=== PATIENT | female | born 1960 | race Caucasian/White ===

== ENCOUNTER 2022-03-28 05:01 | Emergency (ER) | payer BC ==
[~2022-03-28] VITALS: Ht 177.8 cm; Wt 81.7 kg
[2022-03-28] MEDS ORDERED: SPIRIVA18 MCG INH (05:17)
== END 2022-03-28 05:41 | disposition home or self-care (01) ==
LOC: ED 05:01
DX: R04.0 Epistaxis (principal); J43.9 Emphysema, unspecified
CPT/HCPCS: 30901; 99283-25

== ENCOUNTER 2024-04-12 20:14 | Inpatient (IN) | payer OTHER ==
[~2024-04-12] VITALS: Ht 177.8 cm; Wt 84.2 kg
[~2024-04-12 20:14] MED LIST: SPIRIVA18 MCG INH
[2024-04-12 20:27] LABS: PH, VENOUS 6.987 (7.31-7.41)
[2024-04-12 20:30] LABS: HEMATOCRIT 50.4 % (35.0-50.0); HEMOGLOBIN 16.7 g/dL (12.0-18.0); MCH 30.5 (27-36); MCHC 33.2 g/dl (30-36); MCV 92.1 fl (81-99); PLATELET COUNT 320 K/uL (140-440); RBC 5.47 M/ul (4.3-5.7); RDW 14.9 (10.5-15.0)
[2024-04-12] MEDS ORDERED: ALBUTEROL SULFATE 0.5% 2.5 MG/0.5 ML VIAL INH ONE (20:30)
[2024-04-12] MEDS ORDERED: ALBUTEROL/IPRATROPIUM 3 ML NEB INH ONE (20:30)
[2024-04-12] MEDS ORDERED: LORazepam 2 MG/ML VIAL IV ONE (20:30)
[2024-04-12 20:48] LABS: BASOPHILS, MANUAL DIFF 1; EOSINOPHILS, MANUAL DIFF 18; LYMPHOCYTES, MANUAL DIFF 41; MONOCYTES, MANUAL DIFF 8; NEUTROPHILS, MANUAL DIFF 32
[2024-04-12 20:57] LABS: ALBUMIN 4.1 g/dL (3.4-5.0); ALBUMIN/GLOBULIN RATIO 1.17 (1.1-2.4); ANION GAP 18.6 (7-21); BILIRUBIN, TOTAL 0.3 ng/dL (0.2-1.0); BUN/CREATININE RATIO 9.48 (6.0-28.6); CALCIUM 9.4 mg/dL (8.5-10.1); CREATININE, SERUM 1.16 mg/dL (0.55-1.02); POTASSIUM 5.6 mmol/L (3.5-5.1); PROTEIN, TOTAL 7.6 g/dL (6.4-8.2)
[2024-04-12] MEDS ORDERED: SODIUM CHLORIDE 0.9% 1,000 ML IV PRN (21:00)
[2024-04-12] MEDS ORDERED: LACTATED RINGER'S 1,000 ML IV ONE (21:00)
[2024-04-12] MEDS ORDERED: CEFTRIAXONE/SODIUM CHLORIDE 2 GM/100 ML PIGGYBACK IV ONE (21:15)
[2024-04-12] MEDS ORDERED: AZITHROMYCIN/DEXTROSE 500 MG/250 ML BAG IV ONE (21:15)
[2024-04-12 21:30] LABS: INFLUENZA B NAA NEGATIVE (NEGATIVE); RESPIRATORY SYNCYTIAL VIR NAA NEGATIVE (NEGATIVE)
[2024-04-12] MEDS ORDERED: methylPREDNISolone SOD SUCC 40 MG/ML VIAL IV SCH (22:00)
--- NOTE | 2024-04-12 22:15 | NUR ---
PT ARRIVED TO THE UNIT VIA STRETCHER. HANDOFF REPORT RECEIVED FROM STEFANO KHAN. PT ARRIVES TO THE UNIT ON BIPAP. PT IS ALERT AND ORIENTED. ANSWERS QUESTIONS APPROPRIATLY AND FOLLOWS COMMANDS. PT DAUGHTER AT BEDSIDE. PT IV SITES WNL. PT VITAL SIGNS WNL. PT DOES NOT APPEAR TO BE IN ANY DISTRESS.
[2024-04-12] MEDS ORDERED: ALBUTEROL SULFATE 0.083% 3 ML VIAL INH PRN (22:30)
[2024-04-12 22:37] VITALS: BP 111/71
[2024-04-12] MEDS ORDERED: MELATONIN 3 MG TAB PO PRN (22:45)
[2024-04-12] MEDS ORDERED: ACETAMINOPHEN 325 MG TAB PO PRN (22:45)
--- NOTE | 2024-04-12 23:00 | NUR ---
PT REMAINS ON BIPAP. SETTING ARE 18/8, RATE 26, O2 36%. PT TOLERATING WELL. PT STATES SHE FEELS SOB AT TIMES, AND HAS A NONPRODUCTIVE COUGH. PT LUNGS SOUNDS ARE DIMINISHED WITH WHEEZING NOTED THROUGHOUT. PT CHANGED INTO BRIEF, AND PROVIDED WITH WARM BLANKET AND WATER. NO NEEDS AT THIS TIME. CALL LIGHT WITHIN REACH. BED IN LOW AND LOCKED POSTION.
--- NOTE | 2024-04-12 23:30 | NUR ---
DISCUSSED MEDICATIONS WITH DR. MEADE. ORDER FOR PRN ATIVAN RECEIVED -SEE EMAR.
[2024-04-12] MEDS ORDERED: LORazepam 2 MG/ML VIAL IV PRN (23:45)
[2024-04-13] VITALS (23 sets, daily range): BP systolic 92–135; BP diastolic 58–92
[2024-04-13] MEDS ORDERED: ALBUTEROL/IPRATROPIUM 3 ML NEB INH SCH
--- NOTE | 2024-04-13 | NUR ---
PT REQUESTING TO REMOVE BIPAP MASK FOR A BREAK AND TO DRINK WATER. BIPAP MASK REMOVED, 4L OXYMASK APPLIED. PT TOLERATING WELL WITH SATURATIONS ABOVE 93%. NO FURTHER NEEDS AT THIS TIME. CALL LIGHT WITHIN REACH.
--- NOTE | 2024-04-13 00:20 | NUR ---
PT PLACED BACK ON BIPAP. SETTINGS REMAIN UNCHANGED. NO FURTHER NEEDS AT THIS TIME. CALL LIGHT WITHIN REACH. BED IN LOW AND LOCKED POSTION.
--- NOTE | 2024-04-13 01:45 | NUR ---
PT RESTING IN BED WITH EYES CLOSED, RESPIRATIONS EVEN AND UNLABORED. PT REMAINS ON BIPAP, SETTINGS REMAIN UNCHANGED. PT VSS. APPEARS TO BE COMFORTABLE. NO NEEDS AT THIS TIME. CALL LIGHT WITHIN REACH, BED IN LOW AND LOCKED POSTION.
--- NOTE | 2024-04-13 02:34 | NUR ---
PT USED CALL LIGHT. PT HAVING COUGH ATTACK AND REQUEST TO TAKE OFF BIPAP. BIPAP TAKEN OFF AND 4L OXYMASK PLACED. RT CALLED FOR A PRN NEB TREATMENT. NEB TREATMENT PROVIDED AND PT PLACED BACK ON BIPAP. PT APPEARS TO BE ANXIOUS, PRN ATIVAN GIVEN PER EMAR.
--- NOTE | 2024-04-13 04:24 | NUR ---
PT RESTING IN BED WITH EYES CLOSED, RESPIRATIONS EVEN AND UNLABORED. VITAL SIGNS STABLE, NO DISTRESS NOTED. PT REMAINS ON BIPAP. SETTINGS ARE 18/8, RATE OF 24, AND O2 36%. CALL LIGHT WITHIN REACH.
--- NOTE | 2024-04-13 06:06 | NUR ---
LABS DRAWN OFF PERIPHERAL IV SITE AND SENT TO LAB. PT REQUEST A CUP OF COFFEE. PT HAS NO OTHER NEEDS AT THIS TIME. VITAL SIGNS REMAIN STABLE. PT REMAINS ON BIPAP, SETTINGS UNCHANGED. CALL LIGHT WITHIN REACH.
[2024-04-13 06:14] LABS: BASOPHILS 0.6 % (0-2); EOSINOPHILS 0.1 % (0-6); HEMATOCRIT 42.3 % (35.0-50.0); LYMPHOCYTES 9.4 % (24-44); MCH 29.7 (27-36); MCV 89.9 fl (81-99); MONOCYTES 0.8 % (0-12); NEUTROPHILS 89.1 % (39-80); PLATELET COUNT 260 K/uL (140-440); RDW 14.3 (10.5-15.0)
[2024-04-13 06:30] LABS: ANION GAP 14.5 (7-21); CALCIUM 8.1 mg/dL (8.5-10.1); CREATININE, SERUM 0.75 mg/dL (0.55-1.02); MAGNESIUM 1.8 mg/dL (1.8-2.4); POTASSIUM 4.5 mmol/L (3.5-5.1)
--- NOTE | 2024-04-13 07:30 | NUR ---
REPORT RECEIVED FROM SAIDA AGARWAL. RT IN ROOM.
[2024-04-13] MEDS ORDERED: NICOTINE 21 MG/24 HR 1 EA TDSY TD SCH (09:00)
[2024-04-13] MEDS ORDERED: ENOXAPARIN SODIUM 40 MG/0.4 ML SYR SUB-Q SCH (09:00)
--- NOTE | 2024-04-13 09:08 | NUR ---
RT IN TO DO PRN NEB TX.
--- NOTE | 2024-04-13 09:44 | NUR ---
CONNECTED WITH MOTHER IN [place]. ESCORTED HER TO ROOM. PT DECLINED VISIT. MOTHER ACCEPTING OF THAT DECISION. ESCORTED MOTHER BACK TO MAIN HALLWAY. PROVIDED SUPPORTIVE PRESENCE, PRAYER. PT DOES NOT WISH TO SEE ANY VISITORS AT THIS TIME.
--- NOTE | 2024-04-13 10:42 | NUR ---
UR CLINICAL REVIEW: [facility] IN[facility] CRITERIA SELF PAY INPT 04/12/24 @ 2142 ORDER MATCHES REG NO AUTH REQIRIED PATIENT IS SELF PAY AT THIS TIME DISCHARGE DISPOSITION PENDING FURTHER EVALUATION 04/15/24
--- NOTE | 2024-04-13 10:44 | NUR ---
IN TO CHECK ON PT, SHE IS STILL ON OXYMASK 4L WATCHING TV. HAS BEEN USING IS AND FLUTTER VALVE, SPO2 98%, RR 14. DENIES NEEDS AT THIS TIME.
--- NOTE | 2024-04-13 11:10 | NUR ---
up to commode to void 700 ML OF CLEAR YELLOW URINE. STABLE ON FEET, DENIES SHORTNESS OF BREATH OR DIZZINESS. OXYMASK OFF, O2 AT 2 LITERS APPLIED. ASKING FOR SOMETHING TO EAT. ENSURE, PUDDING, APPLESAUSE, JUICE GIVEN. SPONGE BATH GIVEN. PATIENT TOLERATED ACTIVITY WELL.
[2024-04-13] MEDS ORDERED: PHARMACY RENAL DOSE ADJUSTMENT 1 DOSE MISC PO SCH (12:00)
--- NOTE | 2024-04-13 12:25 | EKG ---
[facility] [address] [place], [place] [address] Signed Sinus tachycardia Otherwise normal ECG No previous ECGs available Confirmed by Irving Madrigal MD ([id number]) on 04/13/2024 12:25:16 PM Electronically Signed By: IRVING MADRIGAL MD 04/13/24 1225 PATIENT NAME: KEILA GOETZJOROOSEVELT ANDUJAR SARI Electrocardiogram DATE OF : 62 PHYSICIAN: IRVING MADRIGAL MD REPORT #: [id number] REPORT IS CONFIDENTIAL AND NOT TO BE RELEASED WITHOUT AUTHORIZATION
--- NOTE | 2024-04-13 13:47 | NUR ---
PT UP TO BATHROOM TO VOID, REMAINS ON 2L/NC WHILE UP. SATS 95%, SLIGHTLY MORE SOB WITH WALKING. BACK TO BED. HAS EATEN HALF OF LUNCH, WILFREDO WELL. CALL LIGHT IN REACH. DAUGHTER IN TO VISIT WITH PT.
--- NOTE | 2024-04-13 14:54 | NUR ---
SPOKE TO PATIENT ABOUT THE DISCHARGE PLAN. PATIENT PLANS TO DC HOME WHEN MEDICALLY STABLE. PATIENT IS RETIRED. PATIENT HAS NO INSURANCE. ADMITTING WILL HELP THE PATIENT FILL OUT [employer] TO GET INSURANCE. DEMOGRAPHICS ARE CORRECT. PATIENT HAS FAMILY AND FRIENDS THAT CAN HELP NEED. PATIENT DOES NOT USE DME. PATIENT CAN AFFORT HOUSING AND FOOD. PATIENT STILL DRIVES. PATIENT IS FEELING BETTER THIS AFTERNOON. MAY DC HOME IN 1-2 DAYS PER MD NOTES.
--- NOTE | 2024-04-13 14:58 | NUR ---
PT UP TO BR, MORE SHORT OF BREAH THIS AFTERNOON. RT IN TO DO NEB TX, PT BACK ON BIPAP.
--- NOTE | 2024-04-13 16:39 | NUR ---
PT CONT TO REST ON BIPAP. ASSESSMENT DONE, PT DENIES NEEDS. SPO2 97% AND RR 22. LUNGS WITH SMALL WHEEZES IN BASES, COARSE SOUNDS IN UPPERS MORE ON RIGHT SIDE.
--- NOTE | 2024-04-13 17:00 | NUR ---
PT HAD BEEN RESTING ON BIPAP, CALLS TO GO TO BR, WHEN PT TOOK BIPAP OFF SHE BECAME VERY SHORT OF BREATH WITH COUGHING SPELL, VERY LABORED AND REPORTS SUDDENLY MUCH INCREASED SHORTNESS OF BREATH. PT GOT ONTO BSC TO VOID THEN BACK TO BED. BIPAP REPLACED, ATIVAN GIVEN FOR ANXIETY AND RT CALLED FOR NEB TX- IT IS A LITTLE TOO SOON FOR NEB, RT WILL BRING ONE WHEN AVAILABLE. PTEVENTUALLY RELAXES AND WEARS BIPAP FOR A WHILE BUT AFTER APPROX 15 MINUTES CALLS WITH C/O BIPAP MASK "BLOWING IN MY FACE", TRIED TO ADJUST BIPAP FOR COMFORT BUT COULD NOT GET COMFORTABLE. PT ASKED FOR A BREAK, 2L/NC APPLIED, SPO2 91% AND PT LIED DOWN TO REST. NO CHANGE IN LUNG SOUNDS FROM PRIOR ASSESSMENT.
--- NOTE | 2024-04-13 19:30 | NUR ---
PATIENT SITTING UP IN BED, ALERT AND ORIENTED REPORTS NO PAIN OR NAUSEA. REPORTS NO NEEDS AT THIS TIME.
--- NOTE | 2024-04-13 20:45 | NUR ---
PATIENT UP TO BATHROOM VOIDED 650ML CLEAR YELLOW URINE, TOLERATED ACTIVITY WELL. SLIGHTLY UNSTEADY GAIT. STANDBY ASSIST FOR CORD MANAGEMENT. SHE REPORTS NO PAIN OR NAUSEA SHE DOES REPORT SIGNIFICANT HEARTBURN, NEW EKG HAS BEEN ORDERED, NEW LABS HAVE BEEN ORDERED. DUE TO ABNORMAL EKG. EDUCATION PROVIDED TO PATIENT AND HER DAUGHTER IN REGARDS TO EKG FINDINGS AND NEW LAB ORDERS. ALL QUESTIONS ANSWERED AND THEY BOTH DEMONSTRATE CLEAR UNDERSTANDING.
[2024-04-13] MEDS ORDERED: AZITHROMYCIN 500 MG in DEXTROSE 5% 250 ML IV SCH (21:00)
[2024-04-13] MEDS ORDERED: CEFTRIAXONE/SODIUM CHLORIDE 1 GM/100 ML PIGGYBACK IV SCH (21:00)
[2024-04-13] MEDS ORDERED: PANTOPRAZOLE SODIUM 40 MG TABEC PO SCH (21:00)
[2024-04-13] MEDS ORDERED: HEPARIN SOD,PORK IN 0.45% NACL 500 ML IV SCH (21:15)
[2024-04-13] MEDS ORDERED: HEParin SOD (PORCINE) 5,000 UNIT/ML VIAL IV ONE (21:15)
--- NOTE | 2024-04-13 21:29 | NUR ---
CALLED TELEPHARMACY IN REGARDS TO HEPARIN DRIP AND HAVING RECEIVED LOVENOX THIS [employer] SWAN WITH [employer], SHE SAID SHE WILL RESEARCH THIS AND CALL THIS RN BACK.
[2024-04-13 21:30] LABS: BASOPHILS 0.1 % (0-2); HEMATOCRIT 41.6 % (35.0-50.0); LYMPHOCYTES 8.9 % (24-44); MCH 29.9 (27-36); MCHC 33.6 g/dl (30-36); MONOCYTES 4.8 % (0-12); NEUTROPHILS 86.2 % (39-80); PLATELET COUNT 258 K/uL (140-440); RBC 4.68 M/ul (4.3-5.7); RDW 14.4 (10.5-15.0)
[2024-04-13 21:41] LABS: INR 1.07 (0.80-1.30); PARTIAL THROMBOPLASTIN TIME 28.3 Sec (22.9-41.3); PROTIME 13.2 Sec (11.2-14.2)
[2024-04-13] MEDS ORDERED: ASPIRIN 325 MG TAB PO ONE (22:00)
--- NOTE | 2024-04-13 22:39 | EKG ---
[facility] [address] [place] [address] Signed Normal sinus rhythm T wave abnormality, consider inferolateral ischemia Prolonged QT Abnormal ECG When compared with ECG of 12-APR-2024 20:42, T wave inversion now evident in Inferior leads T wave inversion now evident in Anterolateral leads QT has lengthened Confirmed by Farrukh Bernstein MD () on 04/13/2024 10:39:35 PM Electronically Signed By: FARRUKH BERNSTEIN MD 04/13/24 2239 PATIENT NAME: KEILA GOETZKERRIE MORRIS Electrocardiogram DATE OF : 62 PHYSICIAN: FARRUKH BERNSTEIN MD REPORT #: [id number] REPORT IS CONFIDENTIAL AND NOT TO BE RELEASED WITHOUT AUTHORIZATION
--- NOTE | 2024-04-13 22:49 | NUR ---
UPDATED CARE PLAN WITH THIS RN. HEPARIN DRIP IS INFUSING. RECHECK PTT AT 0330, RECHECK TROPONININ AM. HAS CONSULTED WITH CARDIOLOGY AND WILL HAVE HER ON WAIT LIST FOR TRANSFER, POSSIBLY TOMORROW. UPDATED PATIENT.
--- NOTE | 2024-04-13 23:27 | NUR ---
PATIENT CALLED AND REQUESTED TO REMOVE BIPAP. PATIENT PLACED BACK ON 2L VIA NC. PATIENT DENIES ANY SOB. PATIENT DENIES ANY FURTHER NEEDS. CALL LIGHT IN REACH.
[2024-04-14] VITALS (9 sets, daily range): BP systolic 99–121; BP diastolic 59–84
--- NOTE | 2024-04-14 00:43 | NUR ---
PATIENT CALLED [facility] TO HAVE BIPAP TAKEN OFF FOR A BREAK, PATIENT PLACED ON 2L N.C.
--- NOTE | 2024-04-14 03:08 | NUR ---
CALLED TO ASK FOR UPDATES ON PATIENTS, THIS RN UPDATED HIM TO NOTED PVC FIRST 2300 AND JUST ONE RANDOM OCCASIONALLY OF 0200 SHE STARTED HAVING MORE FREQUEST RUNS OF PVC'S, NO SUSTAINED FOR MORE THAN A STRIP ON TELEMETRY. ASKED TO MAKE SURE MG LAB IS ORDERED FOR AM.
[2024-04-14 04:04] LABS: BASOPHILS 0.3 % (0-2); HEMATOCRIT 42.1 % (35.0-50.0); HEMOGLOBIN 13.9 g/dL (12.0-18.0); LYMPHOCYTES 10.3 % (24-44); MCH 29.6 (27-36); MCHC 33.1 g/dl (30-36); MCV 89.5 fl (81-99); MONOCYTES 3.7 % (0-12); NEUTROPHILS 85.7 % (39-80); PLATELET COUNT 264 K/uL (140-440); RDW 14.3 (10.5-15.0)
--- NOTE | 2024-04-14 04:15 | NUR ---
LAB IS IN ROOM FOR 0330 LAB DRAW AT THIS TIME, PATIENT THEN UP TO BATHROOM TO VOID 1000ML CLEAR YELLOW URINE. THEN PATIENT BACK TO BED AM ASSESSMENT COMPLETE, NEB TX ADMINISTERED BY THIS RN. PATIENT POURED HERSELF A CUP OF COFFEE AND IS SITTING UP IN BED WATCHING TV. SHE HAS 2L OXYGEN VIA N.C. 93% OXYGEN SATURATION AT THIS TIME.
[2024-04-14 04:21] LABS: ANION GAP 13.1 (7-21); BUN/CREATININE RATIO 16.45 (6.0-28.6); CALCIUM 8.6 mg/dL (8.5-10.1); CREATININE, SERUM 0.79 mg/dL (0.55-1.02); MAGNESIUM 1.9 mg/dL (1.8-2.4); POTASSIUM 4.1 mmol/L (3.5-5.1)
--- NOTE | 2024-04-14 07:49 | NUR ---
REPORT REC'D FROM TRANSFER SPECIALIST AND PLAN OF CARE RESUMES. PATIENT REMAINS IN SINUS RHYTHM WITH T WAVE INVERSIONS NOTED ON MONITOR IN LEADS II, I AND AVL. RT IN ROOM WITH PATIENT AT THIS TIME. PT WILL POTENTIALLY TRANSFER TO [facility] TODAY.
[2024-04-14] MEDS ORDERED: MAGNESIUM CHLORIDE 64 MG TABCR PO ONE (09:00)
--- NOTE | 2024-04-14 09:22 | NUR ---
DR. BERNSTEIN IN TO SEE PATIENT AND DISCUSS PLAN OF CARE. WAITING TO HEAR FROM [facility] ABOUT POTENTIAL TRANSFER. PT DENIES FURTHER NEEDS. PT REMAINS ON 1 L NC.
--- NOTE | 2024-04-14 10:14 | NUR ---
PLACED PHONE CALL TO [facility] TO CHECK ON PROGRESS OF POTENTIAL TRANSFER. TRANSFER CENTER TO CALL BACK.
[2024-04-14] MEDS ORDERED: ASPIRIN 81 MG CHEW PO SCH (10:24)
--- NOTE | 2024-04-14 10:53 | NUR ---
RECEIVED WORD FROM [facility] THAT PATIENT WILL TRANSFER TO [facility] STEP DOWN ICU. PT NOW UP IN BATHROOM BRUSHING HER TEETH AND PUTTIGN ON A NEW GOWN FOR TRANSFER. PT'S APTT CAME BACK AT 65.1 AT THE 1000 DRAW AND NO CHANGES TO BE MADE TO THE HEPARIN GTT.
--- NOTE | 2024-04-14 11:59 | NUR ---
PATIENT TRANSFERRED VIA [facility] AT 1155. ALL PERSONAL BELONGINGS WERE TAKEN WITH PATIENT. REPORT CALLED TO ED AT [phone].
== END 2024-04-14 11:55 | disposition short-term general hospital (02) | DRG 193 ==
LOC: ED 20:14 → CCU 21:42
PROVIDERS: Family Medicine; Internal Medicine; ADMIT Student in an Organized Health Care Education/Training Program; ATTEND Student in an Organized Health Care Education/Training Program
PROC: 5A09357 Assistance with Respiratory Ventilation, Less than 24 Consecutive Hours, Continuous Positive Airway Pressure (ICD-10-PCS; principal; 2024-04-12)
DX: J18.9 Pneumonia, unspecified organism (principal); I21.4 Non-ST elevation (NSTEMI) myocardial infarction; J96.01 Acute respiratory failure with hypoxia; J96.02 Acute respiratory failure with hypercapnia; J44.1 Chronic obstructive pulmonary disease with (acute) exacerbation; E87.20 Acidosis, unspecified; J44.0 Chronic obstructive pulmonary disease with (acute) lower respiratory infection; N17.9 Acute kidney failure, unspecified; E66.9 Obesity, unspecified; F17.210 Nicotine dependence, cigarettes, uncomplicated; J43.9 Emphysema, unspecified; Z98.51 Tubal ligation status
CPT/HCPCS: 36415; 36592; 71045; 80048; 80053; 82803; 83605; 83735; 83880; 84484; 85025; 85379; 85610; 85730; 87502; 93005; 93010; 94640; 94644; 94660; 94762; 99406; A9270; J0456; J0696; J1644; J1650; J2060; J2919; J7030; J7060; U0002